=== PATIENT | male | born 1935 | race Hispanic/Latino ===

== ENCOUNTER 2018-03-13 07:57 | Day surgery (SDC) | payer MEDICARE ==
[2018-03-06 11:32] VITALS: BMI 27.1
[2018-03-13] MEDS ORDERED: cefTRIAXone IV 1 gm in Dextros 50 ML IVPB ONE (12:39)
[2018-03-13] MEDS ORDERED: Oxycodone/Acetaminophen 5/325 mg Tab PO PRN (12:51)
[2018-03-13 16:31] VITALS: BP 159/89; PULSE 72; RESP 16; TEMP 97.7; O2SAT 98
--- NOTE | 2018-03-14 06:45 | HP ---
REASON FOR ADMISSION: Elevated PSA workup. HISTORY OF PRESENT ILLNESS: Mr. Mello is a very pleasant 82-year-old gentleman who was in here today for a prostate ultrasound and prostate ultrasound guided biopsy. He has moderate voiding complaints, irritative, and obstructive complaints, decreased velocity, nocturia, nothing to the point where he is taking any medication. He is currently not on Flomax. He is worried because his PSA is raising and elevated. We have discussed many options including observation, including repeat PSAs, including MRIs. After discussing all these different options, he is here today for an ultrasound of prostate. On a social note, I did discuss with him because I think he is on the board at [facility]. I had offered him to consider going there for a second opinion or even going [place] or [facility] in [place]. After discussing options, he is here today for prostate ultrasound and biopsy. PAST MEDICAL HISTORY AND SURGICAL HISTORY: Listed on the chart. He is a patient of Dr. Scott Merida. No history of NH or CVA. On social note, as noted above. Essentially, otherwise unremarkable. REVIEW OF SYSTEMS: As listed above, noncontributory. No weight loss, chest pain or shortness of breath. MEDICATIONS: See chart. ALLERGIES: NONE. PHYSICAL EXAMINATION: GENERAL: Well-nourished male, in no apparent distress. VITAL SIGNS: Within normal limits. HEART: Normal S1 and S2. ABDOMEN: Overall soft, nontender, no flank masses appreciated. GENITOURINARY: Normal male phallus without discharge. No testicular masses. RECTAL: 30 to 40 gm prostate, relatively soft, but no specific nodules are appreciated. He asymmetry, but nothing really concerning abnormal on this rectal exam. intubated, otherwise. The remainder of the physical examination is unremarkable. LABORATORY DATA: See chart. IMAGING: CT scan, See chart. DIAGNOSES: Elevated PSA, voiding dysfunction. Decrease voiding stream. IMPRESSION: In summary, a very pleasant gentleman 82-year-old. I explained to him statistically we were very concerned just anyway with malignancy and just age alone category but in terms of recommending the biopsy at this point in PSA, and it is different than his baseline PSA. He has discussed options with me. He had discussed options with Dr. Ciechanowski. After discussing all these options and risks, benefits and alternatives with the patient at length, we are planning to proceed. 1. Ultrasound of the prostate. 2. Ultrasound guided prostate biopsy. 3. Antibiotic prophylaxis to be provided. Further plan, I explained the patient risks, risk of bleeding, risk of infection, and risk of urinary retention. I also discussed options of second opinion, biopsies, etc. After discussing all these options, we are planning to proceed and further plans to follow. In preparation for today, the patient was seen by Dr. Merida for medical clearance. Tu Garcia MD
--- NOTE | 2018-03-14 06:52 | OP ---
PROCEDURE DATE: 03/13/2018 PREOPERATIVE DIAGNOSES: Elevated PSA, voiding dysfunction, nocturia, decreased flow of stream, irritative and obstructive complaints. POSTOPERATIVE DIAGNOSES: Elevated PSA, voiding dysfunction, nocturia, decreased flow of stream, irritative and obstructive complaints. PROCEDURE: Prostate ultrasound and prostate biopsy under ultrasound guidance. SURGEON: Tu Garcia MD SPECIMEN: Prostate cores. In fact, there was a total of 13 separate specimens and about 20 cores that are sent down. INDICATIONS: See the history and physical for further details. A very pleasant gentleman here for elevated and voiding PSA, here for the above procedure. DESCRIPTION OF PROCEDURE: The patient was brought to the operating room table. Routine monitor was placed. Timeout was called to confirm the patient and positioning. The patient was placed in a decubitus position and probe inserted. Timeout was called. Antibiotic prophylaxis was used. We confirmed the patient, positioning, etc. Probe inserted via the rectum 7.5 mHz probe inserted via the rectum. We took pictures in transverse and longitudinal. The total prostate volume measures to be about 40 to 50 mL. There are few little abnormal areas. One is specifically concerning. It is not quite hypoechoic with anything, little bit just an abnormal, could be just nodular, but it seems a little bit peculiar. We labeled this specimen, and we labeled core directed biopsy on the patient's right side. The remainder of the prostate is otherwise essentially unremarkable in the prostatic calcification. There is no extension beyond the prostate Everything else within normal limits. We will continue with the biopsy, and now the random biopsy of left base, left mid, left apex, right base, right mid, right apex; and we did two at each core of regular and etc. There was some areas ____ felt that we needed a better assessment ____ . But overall, there were no major abnormalities. Both biopsy and rectal exam within normal limits. The patient tolerated the procedure well without any complications. Tu Garcia MD
== END 2018-03-13 16:35 | disposition home or self-care (01) ==
LOC: C.SDS 07:57
PROVIDERS: ATTEND Urology
DX: R97.20 Elevated prostate specific antigen [PSA] (principal)
CPT/HCPCS: 10022; 88305; J0696; J1580